=== PATIENT | male | born 1930 | race Two or more races ===

== ENCOUNTER 2020-05-23 08:00 | Outpatient (CLI) | payer OTHER | END 2020-05-23 18:00 | disposition home or self-care (01) | LOC: PPH VACUNA 08:00 | PROVIDERS: ATTEND Emergency Medicine Pediatric Emergency Medicine | DX: Z23 Encounter for immunization (principal) ==

== ENCOUNTER 2020-06-02 08:30 | Emergency (ER) | payer OTHER ==
[~2020-06-02] VITALS: Ht 170.2 cm; Wt 56.7 kg
[2020-06-02] MEDS ORDERED: LEVO-T25 MCG PO (09:13)
[2020-06-02] MEDS ORDERED: AMIODARONE HCL100 MG PO (09:14)
[2020-06-02] MEDS ORDERED: BISACODYL5 MG PO (09:14)
[2020-06-02] MEDS ORDERED: SIMVASTATIN20 MG PO (09:14)
[2020-06-02] MEDS ORDERED: LACTULOSE10 GM/152 NGT (09:14)
[2020-06-02] MEDS ORDERED: LOSARTAN POTASS25 MG PO (09:14)
== END 2020-06-02 14:09 | disposition home or self-care (01) ==
LOC: ER 08:30
DX: S80.02XA Contusion of left knee, initial encounter (principal); S80.01XA Contusion of right knee, initial encounter; S40.012A Contusion of left shoulder, initial encounter; S40.011A Contusion of right shoulder, initial encounter; S70.01XA Contusion of right hip, initial encounter; M54.5 Low back pain; W18.09XA Striking against other object with subsequent fall, initial encounter; Y93.89 Activity, other specified; Y92.018 Other place in single-family (private) house as the place of occurrence of the external cause; Y99.8 Other external cause status